=== PATIENT | male | born 2000 | race Caucasian/White ===

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

== ENCOUNTER 2021-03-14 19:28 | Emergency (ER) | payer BC, SELFPAY ==
[2021-03-14 19:56] VITALS: BP 147/80; PULSE 94; RESP 15; TEMP 36.6; O2SAT 100; BMI 18.1
[2021-03-14 20:42] LABS: Alanine Aminotransferase 32 IU/L (<50)
--- NOTE | 2021-03-14 21:01 | ED.GENADULT ---
HPI - General Adult General Chief complaint: Blood/Body fluid exposure Stated complaint: poked in right hand with needle Time Seen by Provider: 03/14/21 20:55 Source: patient Mode of arrival: Ambulatory Limitations: no limitations History of Present Illness HPI narrative: Patient is a 20-year-old male who presents with accidental needle stick. He lives in a house with where there is known IV drug use he himself does not use drugs. He was taking out the trash when he stuck himself in the right palm with a needle. His girlfriend's father lives with them and uses drugs he has a known blood disease it is unknown what this is. Related Data Previous Rx's Medication Instructions Recorded emtricitabine 200 mg-tenofovir 1 tab PO DAILY #60 tab 03/14/21 disoproxil fumarate 300 mg tablet (Truvada) Allergies Allergy/AdvReac Type Severity Reaction Status Date / Time No Known Drug Allergies Allergy Unverified 08/16/19 12:49 Review of Systems Review of Systems Narrative: GENERAL: Denies chills,fever HEENT: Denies throat pain RESPIRATORY: Denies dyspnea, cough, wheezing CARDIOVASCULAR: Denies chest pain, palpitations GASTROINTESTINAL: Denies nausea, vomiting MUSCULOSKELETAL: Denies extremity pain, injury SKIN: Needle puncture, see HPI NEUROLOGIC: Denies weakness, dizziness, headache, numbness 8 point review of systems is negative except for those stated above and HPI Patient History Medical History (Updated 03/14/21 @ 21:11 by Lexie Adorno DO) Pharyngitis Social History Smoking Status: Current every day smoker Smoking Status: Current every day smoker Substance Use Type: does not use Exam Initial Vital Signs Initial Vital Signs: Vital Signs Temperature 97.9 F 03/14/21 19:56 Pulse Rate 94 H 03/14/21 19:56 Respiratory Rate 15 03/14/21 19:56 Blood Pressure 147/80 H 03/14/21 19:56 Pulse Oximetry 100 03/14/21 19:56 GENERAL: Well-appearing, well-nourished and in no acute distress. CARDIOVASCULAR: peripheral pulses in tact, cap refill <2 sec RESPIRATORY: No respiratory distress, speaks in full sentences without difficulty EXTREMITIES: Normal range of motion, no clubbing or edema. Neurovascularly intact NEUROLOGICAL: Cranial nerves II through XII grossly intact. Normal gait and speech. SKIN: Possible small needle stick and right thenar eminence Course Orders Ordered: ED Orders 03/14/21 20:16 Complete Blood Count AUTO DIFF Stat Comprehensive Metabolic Panel Stat Discontinued Medications Diphtheria/Tetanus/Acell Pertussis (Tet,Diph,Pertuss(Acell),Vac/Pf 0.5 Ml Syringe) 0.5 ml IM .ONCE ONE Stop: 03/14/21 21:02 Last Admin: 03/14/21 22:31 Dose: 0.5 ml Documented by: YAN Emtricitabine/Tenofovir (Emtricitabin/Tenofovir Prepack) 1 prepack MISC SEEINSTR ONE Stop: 03/14/21 21:08 Last Admin: 03/14/21 22:31 Dose: 1 prepack Documented by: YAN Hepatitis B Vaccine (Hepatitis B Vac (Engerix-B) 10 Mcg/0.5 Ml Vial) 20 mcg IM .ONCE ONE Stop: 03/14/21 21:02 Vital Signs Vital signs: Vital Signs - 8 hr 03/14/21 19:56 03/14/21 23:00 Temperature 97.9 F Pulse Rate 94 H 72 Respiratory Rate 15 15 Blood Pressure 147/80 H 141/67 H Pulse Oximetry 100 95 Medical Decision Making Lab Data Result diagrams: 03/14/21 20:16 03/14/21 20:16 Labs: Lab Results 03/14/21 03/14/21 03/14/21 Range/Units 20:16 20:16 20:16 WBC 5.7 (4.5-11.0) X10^3/uL RBC 4.89 (4.5-5.9) X10^6/uL Hgb 14.8 (13.5-17.5) g/dL Hct 43.2 (41-53) % MCV 88.2 (80-100) fL MCH 30.2 (26-34) PG MCHC 34.2 (30-36) % RDW 12.3 (11.6-14.8) % Plt Count 219 (150-400) X10^3/uL Neut % (Auto) 53.8 (50-75) % Lymph % (Auto) 34.3 (25-40) % [place] % (Auto) 10.5 (3-14) % Eos % (Auto) 1.0 L (2-4) % Baso % (Auto) 0.4 (0-2) % Neut # (Auto) 3100 (0130-4771) /uL Lymph # (Auto) 2000 (4348-0548) /uL [place] # (Auto) 600 (0-900) /uL Eos # (Auto) 100 (0-450) /uL Baso # (Auto) 0 (0-100) /uL Sodium (137-145) mmol/L Potassium (3.4-5.1) mmol/L Chloride (98-107) mmol/L Carbon Dioxide (22-32) mmol/L BUN (9-20) mg/dL Creatinine (0.66-1.25) mg/dL Estimated GFR (>60) mL/min BUN/Creatinine Ratio (6-22) Glucose (70-100) mg/dL Calcium (8.4-10.2) mg/dL Total Bilirubin (0.2-1.3) mg/dL AST (17-59) IU/L ALT 32 (<50) IU/L Alkaline Phosphatase (38-126) U/L Total Protein (6.3-8.2) g/dL Albumin (3.5-5.0) g/dL Globulin (1.7-4.1) g/dL Albumin/Globulin Ratio (1.0-2.8) Hep Bs Antigen Negative (NEGATIVE) s/c Hepatitis C Antibody Negative (NEGATIVE) s/c HIV 1&2 Ab/P24 Ag 4thGn Negative (NEGATIVE) 03/14/21 Range/Units 20:16 WBC (4.5-11.0) X10^3/uL RBC (4.5-5.9) X10^6/uL Hgb (13.5-17.5) g/dL Hct (41-53) % MCV (80-100) fL MCH (26-34) PG MCHC (30-36) % RDW (11.6-14.8) % Plt Count (150-400) X10^3/uL Neut % (Auto) (50-75) % Lymph % (Auto) (25-40) % [place] % (Auto) (3-14) % Eos % (Auto) (2-4) % Baso % (Auto) (0-2) % Neut # (Auto) (9141-1018) /uL Lymph # (Auto) (2050-3487) /uL [place] # (Auto) (0-900) /uL Eos # (Auto) (0-450) /uL Baso # (Auto) (0-100) /uL Sodium 139 (137-145) mmol/L Potassium 3.8 (3.4-5.1) mmol/L Chloride 105 (98-107) mmol/L Carbon Dioxide 24 (22-32) mmol/L BUN 8 L (9-20) mg/dL Creatinine 0.76 (0.66-1.25) mg/dL Estimated GFR > 60.0 (>60) mL/min BUN/Creatinine Ratio 10.5 (6-22) Glucose 109 H (70-100) mg/dL Calcium 9.6 (8.4-10.2) mg/dL Total Bilirubin 0.5 (0.2-1.3) mg/dL AST 35 (17-59) IU/L ALT 31 (<50) IU/L Alkaline Phosphatase 71 (38-126) U/L Total Protein 7.3 (6.3-8.2) g/dL Albumin 4.8 (3.5-5.0) g/dL Globulin 2.5 (1.7-4.1) g/dL Albumin/Globulin Ratio 1.9 (1.0-2.8) Hep Bs Antigen (NEGATIVE) s/c Hepatitis C Antibody (NEGATIVE) s/c HIV 1&2 Ab/P24 Ag 4thGn (NEGATIVE) MDM Narrative Medical decision making narrative: At this time is presumed patient was stuck with a high risk needle. He states that he has been fully vaccinated with hepatitis B. He was offered vaccine but not indicated at this time. His tetanus was also up-to-dated in the ED. it is recommended that he start the HIV medication. He is agreeable to this and would like to as well. He is given a prepack which is 28 days and a prescription has been sent to local pharmacy as well. I strongly encouraged him to follow up and have more testing done. He currently does not have a primary care provider but will definitely get one. Discharge Plan Departure Patient Disposition: Home Clinical Impression: Exposure to blood or body fluid Instructions: DI for Accidental Exposure to Body Fluids Activity Restrictions/Additional Instructions: Your diagnosis is bodily fluid exposure with needlestick. I am sorry that this happened to you. At this time I recommended that you follow-up and have further testing. You have elected to take the HIV medication which I think is a reasonable choice based on the high risk needle your stuck with. You will need follow-up HIV testing hepatitis-B and C testing as well. An updated tetanus. He will need to have your kidney and liver functions checked by primary care provider. *Truvada 1 tablet once a day, for at least 2-3 months in till more testing of HIV. *Return to the emergency department if you should have any new or worsening symptoms *Follow-up with primary care provider in 2-3 days Prescriptions: New emtricitabine-tenofovir (TDF) [Truvada] 200-300 mg tablet 1 tab PO DAILY Qty: 60 RF: 0 Referrals: [facility] [Outside] Byron Muñoz MD [Primary Care Provider] -
[2021-03-14 22:14] LABS: HIV 1 & 2 Ab/Ag 4th Gen Combo NEGATIVE (NEGATIVE); Hep C Virus Ab w/Reflex Quant NEGATIVE s/c (NEGATIVE); Hepatitis B Surface Antigen NEGATIVE s/c (NEGATIVE)
[2021-03-14] MEDS: EMTRICITABIN/TENOFOVIR PREPACK 1 PREPACK MISC (22:31)
[2021-03-14] MEDS: TET,DIPH,PERTUSS(ACELL),VAC/PF 0.5 ML SYRINGE IM (22:31)
[2021-03-14 22:53] LABS: Add Manual Diff / Slide Review NO; Basophils Absolute Auto 0 /uL (0-100); Basophils Percent Auto 0.4 % (0-2); Eosinophils Absolute Auto 100 /uL (0-450); Hematocrit 43.2 % (41-53); Hemoglobin 14.8 g/dL (13.5-17.5); Lymphocytes Absolute Auto 2000 /uL (1100-4500); Lymphocytes Percent Auto 34.3 % (25-40); Mean Corpuscular HGB Conc 34.2 % (30-36); Mean Corpuscular Hemoglobin 30.2 PG (26-34); Mean Corpuscular Volume 88.2 fL (80-100); Monocytes Absolute Auto 600 /uL (0-900); Monocytes Percent Auto 10.5 % (3-14); Neutrophils Absolute Auto 3100 /uL (1500-7000); Neutrophils Percent Auto 53.8 % (50-75); Platelet Count 219 X10^3/uL (150-400); Red Blood Cell Count 4.89 X10^6/uL (4.5-5.9); Red Cell Distribution Width 12.3 % (11.6-14.8); White Blood Cell Count 5.7 X10^3/uL (4.5-11.0)
[2021-03-14 23:00] VITALS: BP 141/67; PULSE 72; RESP 15; O2SAT 95
[2021-03-14 23:00] LABS: Alanine Aminotransferase 31 IU/L (<50); Albumin 4.8 g/dL (3.5-5.0); Albumin Globulin Ratio 1.9 (1.0-2.8); Alkaline Phosphatase 71 U/L (38-126); Aspartate Aminotransferase 35 IU/L (17-59); BUN Creatinine Ratio 10.5 (6-22); Bilirubin Total 0.5 mg/dL (0.2-1.3); Blood Urea Nitrogen 8 mg/dL (9-20); Calcium 9.6 mg/dL (8.4-10.2); Carbon Dioxide 24 mmol/L (22-32); Chloride 105 mmol/L (98-107); Estimated Glomerular Filt Rate > 60.0 mL/min (>60); Globulin 2.5 g/dL (1.7-4.1); Glucose 109 mg/dL (70-100); HEMOLYSIS < 15 (0-50); Potassium 3.8 mmol/L (3.4-5.1); Sodium 139 mmol/L (137-145); Total Protein 7.3 g/dL (6.3-8.2)
--- NOTE | 2021-03-15 07:46 | ED_ITS ---
HPI - General Adult General Chief complaint: Blood/Body fluid exposure Stated complaint: poked in right hand with needle Time Seen by Provider: 03/14/21 20:55 Source: patient Mode of arrival: Ambulatory Limitations: no limitations History of Present Illness HPI narrative: Myself. Pharmacy noted patient got Truvada but did not get Tivicay as part of his posterior exposure prophylaxis. Attempted to reach patient by voicemail but was full. Patient's prescription was sent last night in the early hours and the pharmacy is not open yet so patient would not have been able to picking tech the initial prescription so a secondary prescription for Tivicay 1 tablet 50 mg daily number 30 tablets was sent. Will continue to try to reach out to the patient through primary care, Dr. Muñoz and alternative numbers to update them as well. Related Data Previous Rx's Medication Instructions Recorded emtricitabine 200 mg-tenofovir 1 tab PO DAILY #60 tab 03/14/21 disoproxil fumarate 300 mg tablet (Truvada) dolutegravir 50 mg tablet 50 mg PO DAILY #30 tab 03/15/21 Allergies Allergy/AdvReac Type Severity Reaction Status Date / Time No Known Drug Allergies Allergy Unverified 08/16/19 12:49 Patient History Medical History (Updated 03/14/21 @ 21:11 by Lexie Adorno DO) Pharyngitis Social History Smoking Status: Current every day smoker Smoking Status: Current every day smoker Substance Use Type: does not use Exam Initial Vital Signs Initial Vital Signs: Vital Signs Temperature 97.9 F 03/14/21 19:56 Pulse Rate 94 H 03/14/21 19:56 Respiratory Rate 15 03/14/21 19:56 Blood Pressure 147/80 H 03/14/21 19:56 Pulse Oximetry 100 03/14/21 19:56 Course Orders Ordered: Discontinued Medications Diphtheria/Tetanus/Acell Pertussis (Tet,Diph,Pertuss(Acell),Vac/Pf 0.5 Ml Syringe) 0.5 ml IM .ONCE ONE Stop: 03/14/21 21:02 Last Admin: 03/14/21 22:31 Dose: 0.5 ml Documented by: YAN Dolutegravir Sodium (Dolutegravir Prepack) 1 prepack MISC SEEINSTR ONE Stop: 03/15/21 07:43 Emtricitabine/Tenofovir (Emtricitabin/Tenofovir Prepack) 1 prepack MISC SEEINSTR ONE Stop: 03/14/21 21:08 Last Admin: 03/14/21 22:31 Dose: 1 prepack Documented by: YAN Hepatitis B Vaccine (Hepatitis B Vac (Engerix-B) 10 Mcg/0.5 Ml Vial) 20 mcg IM .ONCE ONE Stop: 03/14/21 21:02 Medical Decision Making Lab Data Result diagrams: 03/14/21 20:16 03/14/21 20:16 Labs: Lab Results 03/14/21 03/14/21 03/14/21 Range/Units 20:16 20:16 20:16 WBC 5.7 (4.5-11.0) X10^3/uL RBC 4.89 (4.5-5.9) X10^6/uL Hgb 14.8 (13.5-17.5) g/dL Hct 43.2 (41-53) % MCV 88.2 (80-100) fL MCH 30.2 (26-34) PG MCHC 34.2 (30-36) % RDW 12.3 (11.6-14.8) % Plt Count 219 (150-400) X10^3/uL Neut % (Auto) 53.8 (50-75) % Lymph % (Auto) 34.3 (25-40) % [place] % (Auto) 10.5 (3-14) % Eos % (Auto) 1.0 L (2-4) % Baso % (Auto) 0.4 (0-2) % Neut # (Auto) 3100 (5583-4646) /uL Lymph # (Auto) 2000 (4499-5888) /uL [place] # (Auto) 600 (0-900) /uL Eos # (Auto) 100 (0-450) /uL Baso # (Auto) 0 (0-100) /uL Sodium (137-145) mmol/L Potassium (3.4-5.1) mmol/L Chloride (98-107) mmol/L Carbon Dioxide (22-32) mmol/L BUN (9-20) mg/dL Creatinine (0.66-1.25) mg/dL Estimated GFR (>60) mL/min BUN/Creatinine Ratio (6-22) Glucose (70-100) mg/dL Calcium (8.4-10.2) mg/dL Total Bilirubin (0.2-1.3) mg/dL AST (17-59) IU/L ALT 32 (<50) IU/L Alkaline Phosphatase (38-126) U/L Total Protein (6.3-8.2) g/dL Albumin (3.5-5.0) g/dL Globulin (1.7-4.1) g/dL Albumin/Globulin Ratio (1.0-2.8) Hep Bs Antigen Negative (NEGATIVE) s/c Hepatitis C Antibody Negative (NEGATIVE) s/c HIV 1&2 Ab/P24 Ag 4thGn Negative (NEGATIVE) 03/14/21 Range/Units 20:16 WBC (4.5-11.0) X10^3/uL RBC (4.5-5.9) X10^6/uL Hgb (13.5-17.5) g/dL Hct (41-53) % MCV (80-100) fL MCH (26-34) PG MCHC (30-36) % RDW (11.6-14.8) % Plt Count (150-400) X10^3/uL Neut % (Auto) (50-75) % Lymph % (Auto) (25-40) % [place] % (Auto) (3-14) % Eos % (Auto) (2-4) % Baso % (Auto) (0-2) % Neut # (Auto) (5362-9592) /uL Lymph # (Auto) (5785-8773) /uL [place] # (Auto) (0-900) /uL Eos # (Auto) (0-450) /uL Baso # (Auto) (0-100) /uL Sodium 139 (137-145) mmol/L Potassium 3.8 (3.4-5.1) mmol/L Chloride 105 (98-107) mmol/L Carbon Dioxide 24 (22-32) mmol/L BUN 8 L (9-20) mg/dL Creatinine 0.76 (0.66-1.25) mg/dL Estimated GFR > 60.0 (>60) mL/min BUN/Creatinine Ratio 10.5 (6-22) Glucose 109 H (70-100) mg/dL Calcium 9.6 (8.4-10.2) mg/dL Total Bilirubin 0.5 (0.2-1.3) mg/dL AST 35 (17-59) IU/L ALT 31 (<50) IU/L Alkaline Phosphatase 71 (38-126) U/L Total Protein 7.3 (6.3-8.2) g/dL Albumin 4.8 (3.5-5.0) g/dL Globulin 2.5 (1.7-4.1) g/dL Albumin/Globulin Ratio 1.9 (1.0-2.8) Hep Bs Antigen (NEGATIVE) s/c Hepatitis C Antibody (NEGATIVE) s/c HIV 1&2 Ab/P24 Ag 4thGn (NEGATIVE) Discharge Plan Departure Patient Disposition: Home Clinical Impression: Exposure to blood or body fluid Instructions: DI for Accidental Exposure to Body Fluids Activity Restrictions/Additional Instructions: Your diagnosis is bodily fluid exposure with needlestick. I am sorry that this happened to you. At this time I recommended that you follow-up and have further testing. You have elected to take the HIV medication which I think is a reasonable choice based on the high risk needle your stuck with. You will need follow-up HIV testing hepatitis-B and C testing as well. An updated tetanus. He will need to have your kidney and liver functions checked by primary care provider. *Truvada 1 tablet once a day, for at least 2-3 months in till more testing of HIV. *Return to the emergency department if you should have any new or worsening symptoms *Follow-up with primary care provider in 2-3 days Prescriptions: New emtricitabine-tenofovir (TDF) [Truvada] 200-300 mg tablet 1 tab PO DAILY Qty: 60 RF: 0 dolutegravir 50 mg tablet 50 mg PO DAILY Qty: 30 RF: 0 Referrals: [facility] [Outside] Byron Muñoz MD [Primary Care Provider] -
--- NOTE | 2021-03-15 07:52 | PC.NURSE ---
Please see Dr. Cassidy's note: sent additional medication to [facility] pharmacy ([place]) for pt to seed cone picker.
[2021-03-16 09:38] LABS: Hepatitis B Surf Ab Qualitativ Reactive (.)
== END 2021-03-14 23:00 | disposition home or self-care (01) ==
PROVIDERS: Emergency Provider Emergency Medicine; Family Provider Pediatrics; PCP Pediatrics
DX: Z77.21 Contact with and (suspected) exposure to potentially hazardous body fluids (principal); W26.9XXA Contact with unspecified sharp object(s), initial encounter; Z23 Encounter for immunization
CPT/HCPCS: 36415; 80053; 84460; 85025; 86706; 86803; 87340; 87389; 90471; 99283; 90715; A9270